=== PATIENT | female | born 1955 | race Caucasian/White ===

== ENCOUNTER 2017-01-29 11:42 | Emergency (ER) | payer MEDICARE ==
[~2017-01-29] VITALS: Ht 154.9 cm; Wt 72.6 kg
[~2017-01-29 11:42] MED LIST: AVAPRO PO; BACLOFEN10 MG PO; CIPRO HC OTIC S10 ML AD; DARVOCET-N 1001 TAB PO; FLEXERIL10 MG PO; LISINOPRIL10 MG PO; LISINOPRIL20 MG; LORTAB 5/500 TA1 TA1 PO; MEDROL DOSEPAK4 MG PO; MEDROL4 MG/DOSE- PO; MOBIC15 MG PO; NAPROXEN PO; NORCO 7.5/325 T1 TAB PO; NYQUIL D COLD295 ML PO; PHENERGAN W/CO120 ML PO; PROZAC PO; PROZAC40 MG; RITE-AID PHARMACY; SYNTHROID PO; SYNTHROID0.1 MG; SYNTHROID0.1 MG PO; TOPAMAX PO; TYLOX 5/500 CAP1 CAP PO; VICODIN 5/1 TAB 5/50 PO; ZOCOR PO; ZOCOR20 MG; ZOCOR20 MG PO
== END 2017-01-29 13:10 | disposition home or self-care (01) ==
LOC: CED 11:42 → CFTX 11:42
DX: S61.211A Laceration without foreign body of left index finger without damage to nail, initial encounter (principal); W45.8XXA Other foreign body or object entering through skin, initial encounter; Y92.89 Other specified places as the place of occurrence of the external cause
CPT/HCPCS: 90471; 90715; 99283